=== PATIENT | female | born 1945 | race Caucasian/White ===

== ENCOUNTER 2020-01-10 09:01 | Outpatient (CLI) | payer MEDICARE, SELFPAY ==
--- NOTE | ~2020-01-10 | PE_ITS ---
EXAMINATION: PET skull to mid thigh DATE: 01/10/2020 11:04 INDICATION: Single pulmonary nodule. TECHNIQUE: Blood glucose level was 89 mg/dL. 10.401 mCi of 18-fluorodeoxyglucose (18-FDG) was adminis tered i.v. Low dose computed tomography (CT) images were acquired from the base of the brain to the p roximal thighs for attenuation correction and anatomic localization. Automated exposure control was e mployed. Dose-length product (DLP) was 434 mGy-cm. Positron emission tomography (PET) images were acq uired in the same distribution. COMPARISON: None FINDINGS: Head/neck: There is increased activity in the oral pharynx, major salivary glands, and glottis withou t CT correlate, likely physiologic. There is diffusely increased activity in the thyroid. There are n o pathologically enlarged lymph nodes. Chest: There is symmetric scarring at the lung apices without increased activity. A calcified left kary ng nodule is consistent with old granulomatous disease. There are 8 mm and 4 mm nodules in left lower lobe at left major fissure without increased activity. There is an 8 mm nodule in right lower lobe w ithout increased activity. There is mosaic attenuation in the lungs, likely small airways disease. No pleural effusion. The heart size is normal. No pericardial effusion. Pectus excavatum is noted. Ther e is mild chronic anterior wedging of multiple thoracic vertebral bodies. Abdomen/pelvis/proximal thighs: The liver, gallbladder, spleen, pancreas, adrenal glands, and kidneys are normal. There are no dilated loops of bowel. There is diverticulosis of the colon without eviden ce of diverticulitis. There are no pathologically enlarged lymph nodes. There is no free intraperiton eal fluid. There is a fusion procedure of two spinous processes in the lumbar spine. IMPRESSION: 1. Pulmonary nodules without increased activity, probably benign. Noncontrast, low-dose chest CT is r ecommended in 6 months. 2. Diffusely increased activity in the thyroid without CT correlate, likely benign. Correlate with th yroid function tests. Reviewed, dictated and finalized at location A. NOMETER TESTER IMPRESSION: 1. Pulmonary nodules without increased activity, probably benign. Noncontrast, low-dose chest CT is recommended in 6 months. 2. Diffusely increased activity in the thyroid without CT correlate, likely elliott ign. Correlate with thyroid function tests.
[2020-01-10 09:26] LABS: Glucose Point of Care 89 (65-105)
== END 2020-01-10 09:02 | disposition home or self-care (01) ==
PROVIDERS: PCP Internal Medicine; Visit Provider Internal Medicine
DX: R91.1 Solitary pulmonary nodule (principal)
CPT/HCPCS: 78815; A9552

== ENCOUNTER 2021-09-18 12:23 | Outpatient (CLI) | payer MEDICARE, SELFPAY ==
--- NOTE | ~2021-09-18 | US_ITS ---
EXAMINATION: US pelvic complete w TV DATE: 09/18/2021 13:32 INDICATION: Postmenopausal bleeding Comparison:No prior studies for comparison. TECHNIQUE: Multiple transabdominal and endovaginal sonographic images of the pelvis performed. FINDINGS: The uterus measures 5.6 x 3 x 4.1 cm. The endometrial complex measures 9 mm. The ovaries are not visualized. There is no free fluid in the pelvis. There are no abnormal masses seen on either side. IMPRESSION: 1. . Thickened endomtrial complex. The differential diagnosis includes endometrial hyperplasia, polyp and carcinoma. Biopsy is recommended. Reviewed, dictated and finalized at location A. IMPRESSION: 1. . Thickened endomtrial complex. The differential diagnosis includes endometr ial hyperplasia, polyp and carcinoma. Biopsy is recommended.
== END 2021-09-18 12:24 | disposition home or self-care (01) ==
PROVIDERS: PCP Internal Medicine; Visit Provider Obstetrics & Gynecology
DX: N95.0 Postmenopausal bleeding (principal); R93.89 Abnormal findings on diagnostic imaging of other specified body structures
CPT/HCPCS: 76830; 76856